=== PATIENT | male | born 1980 | race Two or more races ===

== ENCOUNTER 2018-04-11 18:26 | Inpatient (IN) | payer MEDICAID ==
[~2018-04-11] VITALS: Ht 180.3 cm; Wt 71.0 kg
[2018-04-11 18:27] VITALS: Ht 180.3 cm; Wt 71.0 kg
[2018-04-11 19:12] LABS: BASOPHIL % 0.6 % (0-2); PLATELET COUNT 121 x10^3mcL (130-400); RED CELL DISTRIBUTION WIDTH 13.2 % (11.5-14.5)
[2018-04-11 19:16] LABS: CALCIUM 9.9 mg/dL (8.5-10.1); CARBON DIOXIDE 29.8 mmol/L (21-32); CHLORIDE SERUM 95 mmol/L (98-107); CREATININE SERUM 1.2 mg/dL (0.7-1.3); GFR1 > 60 mL/min; GLUCOSE SERUM 135 mg/dL (74-106); POTASSIUM SERUM 3.5 mmol/L (3.5-5.1); SODIUM SERUM 139 mmol/L (136-145)
[2018-04-11 19:38] LABS: ALBUMIN 4.5 g/dL (3.4-5.0); FREE T4 1.12 ng/dL (0.76-1.46)
[2018-04-11 19:55] LABS: ALKALINE PHOSPHATASE 138 U/L (46-116); ALT/SGPT 364 U/L (16-63); AST/SGOT 885 U/L (15-37); BILIRUBIN TOTAL 1.28 mg/dL (0.20-1.00); TOTAL PROTEIN, SERUM 8.8 g/dL (6.4-8.2)
[2018-04-11 21:08] LABS: CHOLESTEROL/HDL RATIO 2.3; MAGNESIUM 1.3 mg/dL (1.8-2.4); PHOSPHOROUS 1.6 mg/dL (2.5-4.9)
[2018-04-11 21:48] VITALS: BP 127/81
[2018-04-11 22:01] LABS: UA SPECIFIC GRAVITY 1.015 (1.005-1.035); microscopic required? YES; urine erythrocyte NEGATIVE (NEGATIVE)
[2018-04-11 22:24] LABS: AMPHETAMINE QUAL UR NONE DETECTED (See below)
[2018-04-12 05:39] VITALS: BP 121/73
[2018-04-12 06:48] LABS: BASOPHIL % 0.6 % (0-2); RED CELL DISTRIBUTION WIDTH 13.3 % (11.5-14.5)
[2018-04-12 07:02] LABS: PLATELET COUNT 99 x10^3mcL (130-400)
[2018-04-12 08:11] LABS: CALCIUM 8.6 mg/dL (8.5-10.1); CARBON DIOXIDE 28.9 mmol/L (21-32); CHLORIDE SERUM 100 mmol/L (98-107); GFR1 > 60 mL/min; GLUCOSE SERUM 76 mg/dL (74-106); MAGNESIUM 1.9 mg/dL (1.8-2.4); PHOSPHOROUS 3.5 mg/dL (2.5-4.9); POTASSIUM SERUM 3.2 mmol/L (3.5-5.1); SODIUM SERUM 139 mmol/L (136-145)
[2018-04-12 09:24] VITALS: BP 125/90
[2018-04-12 13:48] VITALS: BP 129/89
[2018-04-12] MEDS ORDERED: LEXAPRO10 MG PO (15:48)
[2018-04-12] MEDS ORDERED: LEADER MELATONIN5 MG PO (15:49)
[2018-04-12] MEDS ORDERED: LEVAQUIN750 MG PO (15:51)
[2018-04-12 16:07] VITALS: BP 129/89
== END 2018-04-12 17:29 | disposition home or self-care (01) | DRG 243 ==
LOC: ED 18:26 → DU 20:21
PROVIDERS: Emergency Medicine; Internal Medicine
DX: K21.9 Gastro-esophageal reflux disease without esophagitis (principal); N17.0 Acute kidney failure with tubular necrosis; D69.6 Thrombocytopenia, unspecified; E83.42 Hypomagnesemia; E83.39 Other disorders of phosphorus metabolism; F33.1 Major depressive disorder, recurrent, moderate; F10.239 Alcohol dependence with withdrawal, unspecified; Z68.28 Body mass index [BMI] 28.0-28.9, adult; N39.0 Urinary tract infection, site not specified; F41.1 Generalized anxiety disorder; K70.30 Alcoholic cirrhosis of liver without ascites; F17.210 Nicotine dependence, cigarettes, uncomplicated; F41.0 Panic disorder [episodic paroxysmal anxiety]
CPT/HCPCS: 83880; 84439; 85378; G0480; J0696; J2060; J3480; J3490; J7030; Q0092

== ENCOUNTER 2018-06-24 02:30 | Emergency (ER) | payer OTHER ==
[~2018-06-24] VITALS: Ht 180.3 cm; Wt 72.6 kg
[~2018-06-24 02:30] MED LIST: LEADER MELATONIN5 MG PO; LEVAQUIN750 MG PO; LEXAPRO10 MG PO
[2018-06-24 02:35] VITALS: Ht 180.3 cm; Wt 72.6 kg
[2018-06-24 03:24] LABS: PLATELET COUNT 316 x10^3mcL (130-400); RED CELL DISTRIBUTION WIDTH 14.1 % (11.5-14.5)
[2018-06-24 03:27] LABS: BASOPHIL % 0.2 % (0-2)
[2018-06-24 04:23] LABS: CALCIUM 8.5 mg/dL (8.5-10.1); CARBON DIOXIDE 27.2 mmol/L (21-32); CHLORIDE SERUM 101 mmol/L (98-107); CREATININE SERUM 1.1 mg/dL (0.7-1.3); GFR1 > 60 mL/min; GLUCOSE SERUM 107 mg/dL (74-106); POTASSIUM SERUM 3.1 mmol/L (3.5-5.1); SODIUM SERUM 142 mmol/L (136-145)
[2018-06-24 04:27] LABS: ALBUMIN 3.8 g/dL (3.4-5.0); ALKALINE PHOSPHATASE 133 U/L (46-116); ALT/SGPT 129 U/L (16-63); AST/SGOT 112 U/L (15-37); BILIRUBIN TOTAL 0.44 mg/dL (0.20-1.00); MAGNESIUM 1.6 mg/dL (1.8-2.4); TOTAL PROTEIN, SERUM 7.9 g/dL (6.4-8.2)
[2018-06-24 04:31] LABS: AMPHETAMINE QUAL UR NONE DETECTED (See below)
[2018-06-24 04:56] VITALS: BP 157/68
== END 2018-06-24 05:00 | disposition home or self-care (01) ==
LOC: ED 02:30
PROVIDERS: Emergency Medicine
DX: F41.9 Anxiety disorder, unspecified (principal); F10.20 Alcohol dependence, uncomplicated; F32.9 Major depressive disorder, single episode, unspecified
CPT/HCPCS: G0480; J3411; J3475; J3490; J7030; Q0092

== ENCOUNTER 2018-09-08 08:11 | Emergency (ER) | payer OTHER ==
[~2018-09-08] VITALS: Ht 177.8 cm; Wt 68.1 kg
[2018-09-08 08:17] VITALS: Ht 177.8 cm; Wt 68.1 kg
[2018-09-08 08:40] LABS: BASOPHIL % 0.8 % (0-2); PLATELET COUNT 183 x10^3mcL (130-400); RED CELL DISTRIBUTION WIDTH 13.2 % (11.5-14.5)
[2018-09-08 09:21] LABS: CALCIUM 8.6 mg/dL (8.5-10.1); CHLORIDE SERUM 96 mmol/L (98-107); CREATININE SERUM 1.1 mg/dL (0.7-1.3); GFR1 > 60 mL/min; GLUCOSE SERUM 115 mg/dL (74-106); POTASSIUM SERUM 3.5 mmol/L (3.5-5.1); SODIUM SERUM 138 mmol/L (136-145)
[2018-09-08 09:26] LABS: ALBUMIN 4.3 g/dL (3.4-5.0); ALKALINE PHOSPHATASE 140 U/L (46-116); ALT/SGPT 34 U/L (16-63); AST/SGOT 53 U/L (15-37); BILIRUBIN TOTAL 1.02 mg/dL (0.20-1.00); MAGNESIUM 1.9 mg/dL (1.8-2.4); TOTAL PROTEIN, SERUM 8.4 g/dL (6.4-8.2)
[2018-09-08 11:15] VITALS: BP 137/77
== END 2018-09-08 11:15 | disposition home or self-care (01) ==
LOC: ED 08:11
PROVIDERS: Emergency Medicine
DX: F10.129 Alcohol abuse with intoxication, unspecified (principal); K29.00 Acute gastritis without bleeding; F32.9 Major depressive disorder, single episode, unspecified; F41.9 Anxiety disorder, unspecified
CPT/HCPCS: G0480; J3411; J3475; J3490; J7030

== ENCOUNTER 2018-09-12 07:11 | Inpatient (IN) | payer OTHER ==
[~2018-09-12] VITALS: Ht 177.8 cm; Wt 71.0 kg
[2018-09-12 07:13] VITALS: Ht 177.8 cm; Wt 71.0 kg
[2018-09-12 07:56] LABS: BASOPHIL % 0.5 % (0-2); RED CELL DISTRIBUTION WIDTH 12.6 % (11.5-14.5)
[2018-09-12 07:57] LABS: PLATELET COUNT 115 x10^3mcL (130-400)
[2018-09-12 08:07] LABS: ALBUMIN 3.6 g/dL (3.4-5.0); ALKALINE PHOSPHATASE 131 U/L (46-116); ALT/SGPT 254 U/L (16-63); AST/SGOT 293 U/L (15-37); BILIRUBIN TOTAL 0.91 mg/dL (0.20-1.00); CALCIUM 8.7 mg/dL (8.5-10.1); CARBON DIOXIDE 25.9 mmol/L (21-32); CHLORIDE SERUM 95 mmol/L (98-107); GFR1 > 60 mL/min; GLUCOSE SERUM 116 mg/dL (74-106); LIPASE 169 IU/L (73-393); SODIUM SERUM 133 mmol/L (136-145); TOTAL PROTEIN, SERUM 7.3 g/dL (6.4-8.2)
[2018-09-12 08:12] LABS: POTASSIUM SERUM 2.8 mmol/L (3.5-5.1)
[2018-09-12 10:19] LABS: T3 TOTAL 1.67 ng/mL
[2018-09-12 10:37] VITALS: BP 134/86
[2018-09-12 10:48] LABS: PHOSPHOROUS 2.7 mg/dL (2.5-4.9)
[2018-09-12 11:56] LABS: UA SPECIFIC GRAVITY 1.025 (1.005-1.035); microscopic required? YES; urine erythrocyte NEGATIVE (NEGATIVE)
[2018-09-12 12:03] LABS: AMPHETAMINE QUAL UR POSITIVE (See below)
[2018-09-12 12:10] VITALS: BP 131/76
[2018-09-12 12:15] LABS: FREE T4 1.21 ng/dL (0.76-1.46); T4(THYROXINE) 10.6 ug/dL (4.7-13.3)
[2018-09-12 16:32] VITALS: BP 130/89
[2018-09-12 20:37] VITALS: BP 130/88
[2018-09-13 05:35] VITALS: BP 129/85
[2018-09-13 06:37] LABS: BASOPHIL % 0.3 % (0-2); RED CELL DISTRIBUTION WIDTH 12.5 % (11.5-14.5)
[2018-09-13 06:49] LABS: CALCIUM 8.4 mg/dL (8.5-10.1); CARBON DIOXIDE 28.5 mmol/L (21-32); CHLORIDE SERUM 102 mmol/L (98-107); CREATININE SERUM 0.8 mg/dL (0.7-1.3); GFR1 > 60 mL/min; GLUCOSE SERUM 92 mg/dL (74-106); MAGNESIUM 1.7 mg/dL (1.8-2.4); PHOSPHOROUS 3.7 mg/dL (2.5-4.9); PLATELET COUNT 100 x10^3mcL (130-400); POTASSIUM SERUM 3.4 mmol/L (3.5-5.1); SODIUM SERUM 136 mmol/L (136-145)
[2018-09-13 08:00] VITALS: BP 126/86
[2018-09-13 12:30] VITALS: BP 142/91
[2018-09-13 17:00] VITALS: BP 130/89
[2018-09-13 20:52] VITALS: BP 134/95
[2018-09-14 05:13] VITALS: BP 125/81
[2018-09-14 09:03] VITALS: BP 131/88
[2018-09-14 10:22] LABS: CALCIUM 8.4 mg/dL (8.5-10.1); CARBON DIOXIDE 31.6 mmol/L (21-32); CHLORIDE SERUM 102 mmol/L (98-107); CREATININE SERUM 0.8 mg/dL (0.7-1.3); GFR1 > 60 mL/min; GLUCOSE SERUM 101 mg/dL (74-106); MAGNESIUM 1.8 mg/dL (1.8-2.4); POTASSIUM SERUM 3.7 mmol/L (3.5-5.1); SODIUM SERUM 139 mmol/L (136-145)
[2018-09-14] MEDS ORDERED: LIB25 PO (12:12)
[2018-09-14] MEDS ORDERED: FOL1 PO (12:13)
[2018-09-14] MEDS ORDERED: TRA50 PO (12:13)
[2018-09-14] MEDS ORDERED: THERA-M CAPLET1 EACH PO (12:14)
[2018-09-14] MEDS ORDERED: THI100 PO (12:14)
[2018-09-14 12:54] VITALS: BP 131/88
== END 2018-09-14 13:32 | disposition home or self-care (01) | DRG 280 ==
LOC: ED 07:11 → DU 09:18
PROVIDERS: Emergency Medicine; Internal Medicine
DX: K70.10 Alcoholic hepatitis without ascites (principal); G92 Toxic encephalopathy; D69.6 Thrombocytopenia, unspecified; E87.1 Hypo-osmolality and hyponatremia; Z88.8 Allergy status to other drugs, medicaments and biological substances; F32.9 Major depressive disorder, single episode, unspecified; F41.1 Generalized anxiety disorder; F15.10 Other stimulant abuse, uncomplicated; E87.6 Hypokalemia; Y90.9 Presence of alcohol in blood, level not specified; F17.210 Nicotine dependence, cigarettes, uncomplicated; K29.20 Alcoholic gastritis without bleeding; F10.239 Alcohol dependence with withdrawal, unspecified
CPT/HCPCS: 83880; 84439; G0480; J2060; J2405; J3475; J3480; J3490; J7030; J7040; Q0092

== ENCOUNTER 2018-10-02 11:51 | Emergency (ER) | payer OTHER ==
[~2018-10-02] VITALS: Ht 177.8 cm; Wt 66.7 kg
[~2018-10-02 11:51] MED LIST changes: +FOL1 PO; +LIB25 PO; +THERA-M CAPLET1 EACH PO; +THI100 PO; +TRA50 PO
[2018-10-02 12:06] VITALS: Ht 177.8 cm; Wt 66.7 kg
[2018-10-02 13:07] LABS: BASOPHIL % 0.3 % (0-2); PLATELET COUNT 136 x10^3mcL (130-400); RED CELL DISTRIBUTION WIDTH 12.8 % (11.5-14.5)
[2018-10-02 13:26] LABS: CALCIUM 8.7 mg/dL (8.5-10.1); CARBON DIOXIDE 26.9 mmol/L (21-32); CHLORIDE SERUM 97 mmol/L (98-107); CREATININE SERUM 0.9 mg/dL (0.7-1.3); GFR1 > 60 mL/min; GLUCOSE SERUM 104 mg/dL (74-106); POTASSIUM SERUM 3.5 mmol/L (3.5-5.1); SODIUM SERUM 136 mmol/L (136-145)
[2018-10-02 13:30] LABS: ALKALINE PHOSPHATASE 128 U/L (46-116); ALT/SGPT 64 U/L (16-63); AST/SGOT 92 U/L (15-37); BILIRUBIN TOTAL 1.32 mg/dL (0.20-1.00); MAGNESIUM 1.3 mg/dL (1.8-2.4); TOTAL PROTEIN, SERUM 7.9 g/dL (6.4-8.2)
[2018-10-02 13:53] VITALS: BP 134/90
[2018-10-02 14:07] LABS: AMPHETAMINE QUAL UR NONE DETECTED (See below)
== END 2018-10-02 14:47 | disposition home or self-care (01) ==
LOC: ED 11:51
PROVIDERS: Emergency Medicine
DX: F10.239 Alcohol dependence with withdrawal, unspecified (principal); F41.9 Anxiety disorder, unspecified; F32.9 Major depressive disorder, single episode, unspecified; K21.9 Gastro-esophageal reflux disease without esophagitis; Z88.1 Allergy status to other antibiotic agents
CPT/HCPCS: G0480; J2060; Q0092

== ENCOUNTER 2018-10-20 11:38 | Inpatient (IN) | payer OTHER ==
[~2018-10-20] VITALS: Ht 177.8 cm; Wt 67.7 kg
[2018-10-20 11:48] VITALS: Ht 177.8 cm; Wt 67.7 kg
[2018-10-20 12:16] LABS: BASOPHIL % 0.7 % (0-2); PLATELET COUNT 166 x10^3mcL (130-400); RED CELL DISTRIBUTION WIDTH 13.8 % (11.5-14.5)
[2018-10-20 12:41] LABS: CARBON DIOXIDE 30.4 mmol/L (21-32); CHLORIDE SERUM 97 mmol/L (98-107); GFR1 > 60 mL/min; GLUCOSE SERUM 109 mg/dL (74-106); POTASSIUM SERUM 3.2 mmol/L (3.5-5.1); SODIUM SERUM 136 mmol/L (136-145)
[2018-10-20 12:46] LABS: ALBUMIN 3.9 g/dL (3.4-5.0); ALKALINE PHOSPHATASE 138 U/L (46-116); ALT/SGPT 124 U/L (16-63); AST/SGOT 179 U/L (15-37); BILIRUBIN TOTAL 1.7 mg/dL (0.20-1.00); TOTAL PROTEIN, SERUM 7.5 g/dL (6.4-8.2)
[2018-10-20 14:23] VITALS: BP 156/90
[2018-10-20 17:00] VITALS: BP 138/84
[2018-10-20 20:25] VITALS: BP 127/85
[2018-10-21 05:29] VITALS: BP 110/74
[2018-10-21 06:13] LABS: microscopic required? NO
[2018-10-21 06:49] LABS: CALCIUM 8.4 mg/dL (8.5-10.1); CARBON DIOXIDE 24.4 mmol/L (21-32); CHLORIDE SERUM 102 mmol/L (98-107); CREATININE SERUM 0.8 mg/dL (0.7-1.3); GFR1 > 60 mL/min; GLUCOSE SERUM 91 mg/dL (74-106); MAGNESIUM 1.9 mg/dL (1.8-2.4); POTASSIUM SERUM 3.5 mmol/L (3.5-5.1); SODIUM SERUM 134 mmol/L (136-145)
[2018-10-21 08:00] VITALS: BP 128/88
[2018-10-21 08:04] LABS: UA SPECIFIC GRAVITY 1.015 (1.005-1.035); urine erythrocyte NEGATIVE (NEGATIVE)
[2018-10-21 08:11] LABS: AMPHETAMINE QUAL UR NONE DETECTED (See below)
[2018-10-21 09:04] LABS: BASOPHIL % 0 % (0-2); PLATELET COUNT 122 x10^3mcL (130-400)
[2018-10-21] MEDS ORDERED: LIB25 PO (09:17)
[2018-10-21] MEDS ORDERED: ATIVAN0.5 M1 PO (09:19)
[2018-10-21 09:40] VITALS: BP 128/88
== END 2018-10-21 11:22 | disposition home or self-care (01) | DRG 775 ==
LOC: ED 11:38 → DU 13:44
PROVIDERS: Emergency Medicine; ADMIT Internal Medicine
DX: F10.10 Alcohol abuse, uncomplicated (principal); F32.9 Major depressive disorder, single episode, unspecified; F43.9 Reaction to severe stress, unspecified; F41.9 Anxiety disorder, unspecified; K21.9 Gastro-esophageal reflux disease without esophagitis; Z88.1 Allergy status to other antibiotic agents
CPT/HCPCS: 83880; G0480; J2060; J3490; J7030; J7042; Q0092

== ENCOUNTER 2018-12-15 00:11 | Inpatient (IN) | payer OTHER ==
[~2018-12-15] VITALS: Ht 177.8 cm; Wt 68.7 kg
[~2018-12-15 00:11] MED LIST changes: +ATIVAN0.5 M1 PO
[2018-12-15 00:27] VITALS: Ht 177.8 cm; Wt 68.7 kg
[2018-12-15 01:19] LABS: BASOPHIL % 0.3 % (0-2)
[2018-12-15 01:20] LABS: PLATELET COUNT 95 x10^3mcL (130-400)
[2018-12-15 01:32] LABS: ALBUMIN 3.5 g/dL (3.4-5.0); ALKALINE PHOSPHATASE 103 U/L (46-116); ALT/SGPT 44 U/L (16-63); AST/SGOT 66 U/L (15-37); BILIRUBIN TOTAL 0.9 mg/dL (0.20-1.00); CALCIUM 8.4 mg/dL (8.5-10.1); CHLORIDE SERUM 89 mmol/L (98-107); CREATININE SERUM 0.9 mg/dL (0.7-1.3); GFR1 > 60 mL/min; GLUCOSE SERUM 79 mg/dL (74-106); LIPASE 390 IU/L (73-393); SODIUM SERUM 130 mmol/L (136-145)
[2018-12-15 05:13] LABS: UA SPECIFIC GRAVITY >=1.030 (1.005-1.035); microscopic required? YES; urine erythrocyte NEGATIVE (NEGATIVE)
[2018-12-15 05:23] LABS: AMPHETAMINE QUAL UR NONE DETECTED (See below)
[2018-12-15 06:11] LABS: MAGNESIUM 1.7 mg/dL (1.8-2.4); PHOSPHOROUS 3.6 mg/dL (2.5-4.9)
[2018-12-15 06:51] LABS: CALCIUM 7.7 mg/dL (8.5-10.1); CARBON DIOXIDE 21.1 mmol/L (21-32); CHLORIDE SERUM 90 mmol/L (98-107); GFR1 > 60 mL/min; GLUCOSE SERUM 68 mg/dL (74-106); POTASSIUM SERUM 3.7 mmol/L (3.5-5.1); SODIUM SERUM 128 mmol/L (136-145)
[2018-12-15 06:52] LABS: BASOPHIL % 0.3 % (0-2); RED CELL DISTRIBUTION WIDTH 12.9 % (11.5-14.5)
[2018-12-15 06:55] LABS: PLATELET COUNT 74 x10^3mcL (130-400)
[2018-12-15 13:27] VITALS: BP 124/76
[2018-12-15 17:26] VITALS: BP 123/78
[2018-12-15 21:01] VITALS: BP 125/78
[2018-12-16 05:31] VITALS: BP 111/75
[2018-12-16 06:11] LABS: BASOPHIL % 0.2 % (0-2)
[2018-12-16 06:25] LABS: PLATELET COUNT 83 x10^3mcL (130-400)
[2018-12-16 06:37] LABS: CALCIUM 8.8 mg/dL (8.5-10.1); CARBON DIOXIDE 28.1 mmol/L (21-32); CHLORIDE SERUM 93 mmol/L (98-107); CREATININE SERUM 0.8 mg/dL (0.7-1.3); GFR1 > 60 mL/min; GLUCOSE SERUM 102 mg/dL (74-106); MAGNESIUM 1.5 mg/dL (1.8-2.4); POTASSIUM SERUM 3.6 mmol/L (3.5-5.1); SODIUM SERUM 128 mmol/L (136-145)
[2018-12-16 07:17] LABS: PHOSPHOROUS 0.7 mg/dL (2.5-4.9)
[2018-12-16 09:48] VITALS: BP 101/57
[2018-12-16 13:57] VITALS: BP 106/65
[2018-12-16 18:13] VITALS: BP 125/84
[2018-12-16 20:37] VITALS: BP 115/76
[2018-12-17 05:42] VITALS: BP 106/68
[2018-12-17 06:28] LABS: BASOPHIL % 0.4 % (0-2); RED CELL DISTRIBUTION WIDTH 12.9 % (11.5-14.5)
[2018-12-17 06:40] LABS: CALCIUM 8.4 mg/dL (8.5-10.1); CARBON DIOXIDE 27.4 mmol/L (21-32); CHLORIDE SERUM 98 mmol/L (98-107); CREATININE SERUM 0.6 mg/dL (0.7-1.3); GFR1 > 60 mL/min; GLUCOSE SERUM 101 mg/dL (74-106); MAGNESIUM 1.6 mg/dL (1.8-2.4); PHOSPHOROUS 2.2 mg/dL (2.5-4.9); POTASSIUM SERUM 3.7 mmol/L (3.5-5.1); SODIUM SERUM 131 mmol/L (136-145)
[2018-12-17 06:47] LABS: PLATELET COUNT 89 x10^3mcL (130-400)
[2018-12-17 09:30] VITALS: BP 105/72
[2018-12-17] MEDS ORDERED: THI100 PO (12:50)
[2018-12-17] MEDS ORDERED: NATURE'S BLEND F1 MG PO (12:50)
[2018-12-17] MEDS ORDERED: LIB25 PO (12:51)
[2018-12-17 13:13] VITALS: BP 105/72
[2018-12-17 17:53] VITALS: BP 115/78
== END 2018-12-17 19:53 | disposition home or self-care (01) | DRG 469 ==
LOC: ED 00:11 → DU 04:32
PROVIDERS: Emergency Medicine; General Practice; ADMIT Internal Medicine
DX: N17.0 Acute kidney failure with tubular necrosis (principal); E83.39 Other disorders of phosphorus metabolism; E87.1 Hypo-osmolality and hyponatremia; E83.42 Hypomagnesemia; E83.51 Hypocalcemia; F10.239 Alcohol dependence with withdrawal, unspecified; E86.0 Dehydration; R74.0 Nonspecific elevation of levels of transaminase and lactic acid dehydrogenase [LDH]; K21.9 Gastro-esophageal reflux disease without esophagitis; F32.9 Major depressive disorder, single episode, unspecified; F41.9 Anxiety disorder, unspecified; F19.10 Other psychoactive substance abuse, uncomplicated; Y90.0 Blood alcohol level of less than 20 mg/100 ml; Z59.0 Homelessness; Z88.1 Allergy status to other antibiotic agents
CPT/HCPCS: 97116-GP; G0480; J1885; J2060; J2405; J3475; J3490; J7030

== ENCOUNTER 2019-08-25 10:48 | Emergency (ER) | payer OTHER ==
[~2019-08-25] VITALS: Ht 177.8 cm; Wt 77.1 kg
[~2019-08-25 10:48] MED LIST changes: +NATURE'S BLEND F1 MG PO
[2019-08-25 10:57] VITALS: Ht 177.8 cm; Wt 77.1 kg
[2019-08-25 11:33] VITALS: BP 132/82
== END 2019-08-25 11:33 | disposition home or self-care (01) ==
LOC: ED 10:48
DX: Z02.89 Encounter for other administrative examinations (principal)